=== PATIENT | female | born 1965 | race Caucasian/White ===

== ENCOUNTER → 2018-04-14 10:05 | Outpatient (CLI) | payer OTHER, SELFPAY ==
--- NOTE | 2018-04-14 | DI.MG.S_ITS ---
BILATERAL DIGITAL SCREENING MAMMOGRAM 3D/2D WITH CAD: 04/14/2018 CLINICAL: Routine screening. Family history of breast cancer. Comparison is made to exams dated: 02/15/2017 mammogram and 01/06/2012 mammogram - [facility]. The tissue of both breasts is heterogeneously dense. This may lower the sensitivity of mammography. Current study was also evaluated with a Computer Aided Detection (CAD) system. No significant masses, calcifications, or other findings are seen in either breast. There has been no significant interval change. IMPRESSION: NEGATIVE There is no mammographic evidence of malignancy. A 1 year screening mammogram is recommended.(04/15/2019) This exam was interpreted at Station ID: [id number]. NOTE: For mammograms, a report in lay terms will be sent to the patient. Approximately 15% of breast malignancies will not be visualized mammographically. In the management of a palpable breast mass, a negative mammogram must not discourage biopsy of a clinically suspicious lesion. Electronically Signed By: Madeleine tobias/lucia:04/16/2018 08:21:09 letter sent: Normal Exam ACR BI-RADS Category 1: Negative 3341F
== END ==
PROVIDERS: Family Provider Physician Assistant; PCP Physician Assistant; Visit Provider Physician Assistant
DX: Z12.31 Encounter for screening mammogram for malignant neoplasm of breast (principal); Z80.3 Family history of malignant neoplasm of breast
CPT/HCPCS: 77063; 77067

== ENCOUNTER 2019-01-25 08:16 | Day surgery (SDC) | payer OTHER, SELFPAY ==
[2019-01-25] VITALS (7 sets, daily range): BP systolic 111–132; BP diastolic 59–80; PULSE 54–92; RESP 10–18; TEMP 36–36.9; O2SAT 95–99; BMI 31.6
--- NOTE | 2019-01-25 | PATH_ITS ---
[facility] Accession Number: [id number] . 01 Material submitted: . PART A: rectum - RECTAL BIOPSY PART B: ileo-cecal valve - ILEOCECAL VALVE BIOPSY . 01 Clinical history: . SCREENING COLONOSCOPY . 02 Diagnosis: A. Biopsy, Rectum: Hyperplastic polyp. . B. Biopsy, Ileocecal Valve: Fragment of normal appearing colon mucosa consistent with mucosal polypoid redundancy. Negative for evidence of neoplasm on multiple sections. MRV/01/28/2019 . 02 Electronically signed: . Miguelito Valenzuela MD, Pathologist NPI- [id number] . 01 Gross description: . Part A: RECTAL BIOPSY: Received in formalin are multiple fragment(s) of cox, soft tissue measuring 0.2 x 0.1 x 0.1 cm in aggregate submitted entirely in 1 cassette(s) Part B: ILEOCECAL VALVE BIOPSY: Received in formalin is 1 fragment(s) of cox, soft tissue measuring 0.3 x 0.2 x 0.2 cm submitted entirely in 1 cassette(s) /CKI /CKI . 02 Pathologist provided ICD-10: K62.1 . 02 CPT . 834585, [id number] Performed at: 01 [facility] [address], [place], [place] [id number] MD John Segura MD Phone: [phone] Performed at: 02 [facility] [address] [place], [place] [id number] MD Nicky Dangelo MD Phone: [phone]
[2019-01-25] MEDS: SODIUM CHLORIDE 0.9% 1,000 ML 200 ML IV (09:10)
--- NOTE | 2019-01-25 10:13 | PM.HP.1 ---
History of Present Illness Date Patient Seen: 01/25/19 Time Patient Seen: 10:13 Chief complaint: [id number] SCREENING COLONOSCOPY Narrative: The patient is a woman here for her 1st colonoscopy. No family history of colon cancer. No blood in her stool. Patient History Social History household members: spouse Family & Social History Social History: household members spouse Current smoker Meds Home Medications Medication Instructions Recorded Confirmed Type sertraline [Zoloft] 100 mg PO QDAY #0 07/22/11 01/25/19 History Allergies Allergy/AdvReac Type Severity Reaction Status Date / Time Sulfa (Sulfonamide Allergy Severe HIVES; Verified 01/25/19 09:02 Antibiotics) TONGUE SWELLING Review of Systems Review of Systems All systems reviewed & are unremarkable except as noted in HPI and below Respiratory Comments: Recent cold with runny nose Musculoskeletal Comments: Mild arthritis Exam Vital Signs (past 8 hours): - 01/25/19 08:39 Temperature 96.8 F L Pulse Rate 60 Respiratory Rate 16 Blood Pressure 117/80 Pulse Oximetry 95 Oxygen Delivery Method Room Air Narrative Exam Narrative: Pleasant cooperative patient no apparent distress. Lungs are clear to auscultation. No rales or rhonchi. Heart regular rate and rhythm no murmur gallop. Abdomen is soft nontender without mass. No obvious hernias. Patient is alert and oriented x3. Assessment & Plan Assessment & Plan narrative: The patient for a screening colonoscopy. I have discussed the procedure with them. Risks of bleeding, perforation which would necessitate major operation, failure to find remove all lesions, the potential tattoo were all discussed. All questions were answered. They wished to proceed.
--- NOTE | 2019-01-25 10:15 | PM.PREOP ---
Pre-operative Note Interval Note History & Physical reviewed/Exam performed by Physician: Yes Changes to H&P: No ASA Class (for procedural sedation): I
--- NOTE | 2019-01-25 10:29 | SUR.OPER ---
GLASSES IN LABELED BAG TO PACU WITH PATIENT
[2019-01-25] MEDS: MIDAZOLAM 5 MG/5 ML VIAL IV (10:51)
[2019-01-25] MEDS: fentaNYL 250 MCG/5 ML INJ IV (10:51)
--- NOTE | 2019-01-25 10:58 | PM.OP.ENDO ---
Operative Date/Time/Diagnoses Date of procedure: 01/25/19 Time of procedure: 10:58 Pre-op diagnosis: Screening exam Post-op diagnosis: same (Small lesions in the colon) Procedure & Clinicians Study performed: Colonoscopy with cold biopsy Same procedure as scheduled: Yes Indications: Screening due to age Surgeon: Amari Prado Procedure Notes SCOAP/Timeout: Performed Procedure in detail: The patient was placed in the left lateral decubitus position and underwent IV sedation directed by the surgeon consisting of fentanyl and Versed. Digital exam was mild narrowing of the anus. [place] the like a small irregularity in the posterior midline consistent with a fissure. Topical anesthetic was applied.. The scope was inserted and advanced through the rectum into the sigmoid, descending, transverse, and ascending colon. I noted sigmoid diverticulosis(several). I also noted a small flat freckle like lesion in the rectum. I biopsied this area and removed it in case it is something unusual like a carcinoid. It was flat and not raised. Pressure had to be applied and the patient repositioned and a stiffener inserted in order to reach the cecum. The cecum was reached identified by the ileocecal valve and the appendiceal opening. The ileocecal valve was briefly cannulated. The terminal ileum was normal in appearance. On the surface of the ileocecal valve was a small polypoid lesion which I biopsied and removed. The scope was gradually brought out. No other Polyps were found. The scope ultimately was retroflexed in the rectum. The appearance was normal. The scope was removed and the patient tolerated the procedure well. The prep was very good. Of note, the scope camera and printer malfunctioned and I could not take photographs. It had no effect on visualizing the colon however. Scope withdrawal time: 11 minutes Sedation minutes: 34 Findings: diverticulosis (Sigmoid) and polyp Specimen(s): other (Ileocecal valve lesion and flat lesion in the rectum) Complications: none Recommendations: Colonscopy in 5 years (Unless the lesions are not neoplastic in which case 10 years would be more appropriate) Follow up: as needed Disposition: PACU
--- NOTE | 2019-01-25 11:48 | SUR.PHASEII ---
Dr Prado spoke with pt and her , prescription given, having it filled. Pt continues to be w/o complaints. Call narvaez with in reach.
--- NOTE | 2019-01-25 16:05 | SUR.PHASEII ---
late entry: returned with medication, pt dressed and left hen ready and in stable condition.
== END 2019-01-25 12:10 | disposition home or self-care (01) ==
PROVIDERS: Family Provider Physician Assistant; PCP Physician Assistant; Visit Provider Specialist
PROC: 0DJD8ZZ Inspection of Lower Intestinal Tract, Via Natural or Artificial Opening Endoscopic (ICD-10-PCS; CPT 45378; principal; 2019-01-25 09:45)
DX: Z12.11 Encounter for screening for malignant neoplasm of colon (principal); K57.30 Diverticulosis of large intestine without perforation or abscess without bleeding; K62.1 Rectal polyp
CPT/HCPCS: 45380; 99152; 99153; J2250; J3010

== ENCOUNTER → 2020-01-01 14:28 | Outpatient (CLI) | payer OTHER, SELFPAY ==
--- NOTE | 2020-01-01 | DI.RAD.S_ITS ---
PROCEDURE: XR THORACIC SPINE 3V INDICATIONS: Pain in thoracic spine/Low back pain TECHNIQUE: 3 views of the thoracic spine were acquired. COMPARISON: None. FINDINGS: Bones: No fractures or dislocations. No suspicious bony lesions. 12 pairs of ribs are noted, and appear intact where visualized. Soft tissues: No paravertebral stripe thickening. 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 Dictated by: Alok Glynn M.D. on 01/01/2020 at 14:31 Approved by: Alok Glynn M.D. on 01/01/2020 at 14:32
--- NOTE | 2020-01-01 | DI.RAD.S_ITS ---
PROCEDURE: XR LUMBAR SPINE 2-3V INDICATIONS: Pain in thoracic spine/Low back pain TECHNIQUE: 3 views of the lumbar spine were acquired. COMPARISON: [facility], CR, XR THORACIC SPINE 3V, 01/01/2020, 14:29. [facility], CR, L-SPINE 2-3 VIEWS, 02/01/2012, 11:30. FINDINGS: Bones: 6 [id number] vertebrae are present. There is normal bony alignment. No vertebral body compression fractures. No suspicious bony lesions. End plate sclerosis and anterior osteophytes. Soft tissues: Overlying bowel gas pattern is normal. No suspicious soft tissue calcifications. IMPRESSION: 1. There are 6 lumbar-type vertebral bodies, variant anatomy. 2. Mild degenerative changes of the lumbar spine. 3. No compression fracture. Dictated by: Dario Pineda M.D. on 01/01/2020 at 15:23 Approved by: Dario Pineda M.D. on 01/01/2020 at 15:25
== END ==
PROVIDERS: Family Provider Physician Assistant; PCP Physician Assistant; Referring Provider Physician Assistant; Visit Provider Physician Assistant
DX: M54.6 Pain in thoracic spine (principal); M54.5 Low back pain; M47.816 Spondylosis without myelopathy or radiculopathy, lumbar region
CPT/HCPCS: 72072; 72100

== ENCOUNTER → 2020-07-30 09:48 | Outpatient (CLI) | payer OTHER, SELFPAY ==
--- NOTE | 2020-07-30 | DI.RAD.S_ITS ---
PROCEDURE: XR KNEE LT 3V INDICATIONS: PAIN TECHNIQUE: 3 views of the knee were acquired. COMPARISON: None. FINDINGS: Bones: No fractures or dislocations. No suspicious bony lesions. Soft tissues: No joint effusion. No suspicious soft tissue calcifications. IMPRESSION: No fracture. No osseous lesion. If symptoms and/or clinical suspicion for pathology persists, further assessment with repeat radiographs (7-10 days) or advanced imaging (e.g. CT, MRI or bone scan) should be considered. Dictated by: Phyllis Carter MD, PhD on 07/30/2020 at 14:35 Approved by: Phyllis Carter MD, PhD on 07/30/2020 at 14:36
== END ==
PROVIDERS: Family Provider Physician Assistant; PCP Physician Assistant; Referring Provider Physician Assistant; Visit Provider Physician Assistant
DX: M25.561 Pain in right knee (principal); M25.562 Pain in left knee
CPT/HCPCS: 73562

== ENCOUNTER → 2020-07-30 16:57 | Outpatient (CLI) | payer OTHER, SELFPAY ==
--- NOTE | 2020-07-30 16:58 | DI.MG.S_ITS ---
BILATERAL DIGITAL SCREENING MAMMOGRAM 3D/2D WITH CAD: 07/30/2020 CLINICAL: Routine screening. Family history of breast cancer. Comparison is made to exams dated: 04/14/2018 mammogram, 02/15/2017 mammogram, and 01/06/2012 mammogram - . The tissue of both breasts is heterogeneously dense. This may lower the sensitivity of mammography. Current study was also evaluated with a Computer Aided Detection (CAD) system. No significant masses, calcifications, or other findings are seen in either breast. There has been no significant interval change. IMPRESSION: NEGATIVE There is no mammographic evidence of malignancy. A 1 year screening mammogram is recommended. This exam was interpreted at Station ID: [id number]. NOTE: For mammograms, a report in lay terms will be sent to the patient. Approximately 15% of breast malignancies will not be visualized mammographically. In the management of a palpable breast mass, a negative mammogram must not discourage biopsy of a clinically suspicious lesion. Electronically Signed By: Rustam Rodriguez acr/lucia:07/30/2020 17:23:11 letter sent: Normal Exam ACR BI-RADS Category 1: Negative 3341F
== END ==
PROVIDERS: Family Provider Physician Assistant; PCP Physician Assistant; Referring Provider Physician Assistant; Visit Provider Physician Assistant
DX: Z12.31 Encounter for screening mammogram for malignant neoplasm of breast (principal); Z80.3 Family history of malignant neoplasm of breast
CPT/HCPCS: 77063; 77067

== ENCOUNTER → 2022-04-11 12:46 | Outpatient (CLI) | payer BC, SELFPAY ==
--- NOTE | 2022-04-11 12:51 | DI.MG.S_ITS ---
BILATERAL DIGITAL SCREENING MAMMOGRAM 3D/2D WITH CAD: 04/11/2022 CLINICAL: Routine screening. Family history of breast cancer. Comparison is made to exams dated: 07/30/2020 mammogram, 04/14/2018 mammogram, and 02/15/2017 mammogram - [facility]. Both breasts are heterogeneously dense, which may obscure small masses (category c / 51-75% glandular tissue). Current study was also evaluated with a Computer Aided Detection (CAD) system. No significant masses, calcifications, or other findings are seen in either breast. There has been no significant interval change. IMPRESSION: NEGATIVE There is no mammographic evidence of malignancy. A 1 year screening mammogram is recommended. Based on the Tyrer Cuzick model (a risk assessment model) the patient's lifetime risk is 8.1% and her 10 year risk is 2.3%. According to the ACR, ACS, and NCCN guidelines, an annual breast MRI exam along with mammogram is recommended if the patient's lifetime risk is 20% or greater. This exam was interpreted at Station ID: [id number]. NOTE: For mammograms, a report in lay terms will be sent to the patient. Approximately 15% of breast malignancies will not be visualized mammographically. In the management of a palpable breast mass, a negative mammogram must not discourage biopsy of a clinically suspicious lesion. Electronically Signed By: Bk dior/lucia:04/11/2022 14:09:12 letter sent: Normal Exam ACR BI-RADS Category 1: Negative 3341F
== END ==
PROVIDERS: Family Provider Physician Assistant; PCP Physician Assistant; Referring Provider Physician Assistant; Visit Provider Physician Assistant
DX: Z12.31 Encounter for screening mammogram for malignant neoplasm of breast (principal); Z80.3 Family history of malignant neoplasm of breast
CPT/HCPCS: 77063; 77067

== ENCOUNTER → 2023-07-14 14:23 | Outpatient (CLI) | payer BC, SELFPAY ==
--- NOTE | 2023-07-14 | DI.MG.S_ITS ---
BILATERAL DIGITAL SCREENING MAMMOGRAM 3D/2D WITH CAD: 07/14/2023 CLINICAL: Routine screening. Family history of breast cancer. Comparison is made to exams dated: 04/11/2022 mammogram, 07/30/2020 mammogram, and 04/14/2018 mammogram - [facility]. Both breasts are heterogeneously dense, which may obscure small masses (category c / 51-75% glandular tissue). Current study was also evaluated with a Computer Aided Detection (CAD) system. No significant masses, calcifications, or other findings are seen in either breast. There has been no significant interval change. IMPRESSION: NEGATIVE There is no mammographic evidence of malignancy. A 1 year screening mammogram is recommended. Based on the Tyrer Cuzick model (a risk assessment model) the patient's lifetime risk is 8.0% and her 10 year risk is 2.6%. According to the ACR, ACS, and NCCN guidelines, an annual breast MRI exam along with mammogram is recommended if the patient's lifetime risk is 20% or greater. This exam was interpreted at Station ID: [id number]. NOTE: For mammograms, a report in lay terms will be sent to the patient. Approximately 15% of breast malignancies will not be visualized mammographically. In the management of a palpable breast mass, a negative mammogram must not discourage biopsy of a clinically suspicious lesion. Electronically Signed By: Daljit schulte/lucia:07/14/2023 14:56:32 letter sent: Normal Exam ACR BI-RADS Category 1: Negative 3341F
== END ==
PROVIDERS: Family Provider Physician Assistant; PCP Physician Assistant; Referring Provider Physician Assistant; Visit Provider Physician Assistant
DX: Z12.31 Encounter for screening mammogram for malignant neoplasm of breast (principal); Z80.3 Family history of malignant neoplasm of breast
CPT/HCPCS: 77063; 77067

== ENCOUNTER → 2025-05-01 08:30 | Outpatient (CLI) | payer BC, SELFPAY ==
--- NOTE | 2025-05-01 08:31 | DI.MG.S_ITS ---
MM screening mammo BI: 05/01/2025. BI-RADS: 1 CLINICAL: 59-year old female for bilateral screening mammogram. Tyrer-Cuzick lifetime risk of 6.7%. No personal or first-degree family history of breast cancer. PRIOR EXAMS 07/14/2023, 04/11/2022, 07/30/2020, 04/14/2018. MAMMOGRAPHY TECHNIQUE: 2D and 3D (tomosynthesis) digital mammographic views obtained, with additional images as needed for full coverage. Current study was also evaluated with a Computer Aided Detection (CAD) system. DENSITY C. The breasts are heterogeneously dense, which may obscure small masses. MAMMOGRAPHY FINDINGS Bilateral: No suspicious mass, asymmetry, microcalcification, or other abnormality seen. IMPRESSION: * No evidence of malignancy. RECOMMENDATIONS Bilateral * Annual screening mammography. OVERALL ASSESSMENT CATEGORY BI-RADS-1: Negative. The [employer] recommends annual screening mammography beginning at age 40 for women with average risk of breast cancer. ELECTRONICALLY SIGNED: Zara Mi M.D. on 05/01/2025 at 04:43:02 PM PT Interpreting Station ID: [id number]
== END ==
LOC: MAMMO 08:31
PROVIDERS: Family Provider Physician Assistant; PCP Physician Assistant; Referring Provider Physician Assistant; Visit Provider Physician Assistant
DX: Z12.31 Encounter for screening mammogram for malignant neoplasm of breast (principal); R92.333 Mammographic heterogeneous density, bilateral breasts
CPT/HCPCS: 77063; 77067